=== PATIENT | female | born 1950 | race Caucasian/White ===

== ENCOUNTER 2017-02-05 14:42 | Day surgery (SDC) | payer OTHER ==
[~2017-02-05] VITALS: Ht 167.6 cm; Wt 66.9 kg
[~2017-02-05 14:42] MED LIST: PROPOFOL 200 MG/20 ML AMP IV ONE
[2017-02-05] MEDS ORDERED: POVIDONE IODINE 5% (ANTISEPSIS KIT) 4 APPLICATIONS EACH NARE PRN (16:00)
[2017-02-05] MEDS ORDERED: LACTATED RINGER'S 1000 ML IV PRN (16:00)
[2017-02-05] MEDS ORDERED: SODIUM CHLORID 0.9% 500 ML IV PRN (16:00)
[2017-02-05] MEDS ORDERED: METOPROLOL TARTRATE 25 MG TAB PO PRN (16:00)
[2017-02-05] MEDS ORDERED: CHLORHEXIDINE GLUCONATE 2 % 1 PACK (2 CLOTHS) TOPICAL PRN (16:00)
[2017-02-05] MEDS ORDERED: INSULIN HUMAN REGULAR 1,000 UNITS/10 ML VIAL SQ PRN (16:00)
[2017-02-05] MEDS ORDERED: AMLO5TAB2 PO (16:26)
[2017-02-05] MEDS ORDERED: APIX5TAB PO (16:26)
[2017-02-05] MEDS ORDERED: NEXI40CA PO (16:26)
[2017-02-05] MEDS ORDERED: LEVO50TA4 PO (16:26)
[2017-02-05] MEDS ORDERED: FLEC100T PO (16:26)
--- NOTE | 2017-02-05 20:04 | MA ---
cc: LISSA QUNIONEZ M.D. DATE 02/05/2017 Cardioversion. INDICATION Mrs. Gonzalez is a 66-year-old female with atrial fibrillation on medication was having episode of atrial tachyarrhythmia. Heart rate difficult to control. Admitted for cardioversion. The risks, the nature and the benefit of the procedure are clearly stated to her and her . The risks include pneumothorax, cardiac perforation, stroke, need for open heart surgery and even . The patient understands and agreed to proceed. PROCEDURE After written informed consent was obtained, the patient was brought to the DOC Unit where the patient was evaluate by anesthesiologist. Anterolateral pad was placed. Subsequently the patient received a 200 sync biphasic joule that converted her into sinus rhythm. Patient fully recuperated from anesthesia. No incident to report. CONCLUSION Successful cardioversion. COMMENT AND RECOMMENDATIONS The patient going to be discharged home. Medication will be initiated. Already on anticoagulation. I will see her in 3 weeks. MD SHAMA Norton/KK /5:00 PM /7:54 PM
--- NOTE | 2017-02-06 11:38 | EKG ---
Date Performed: 02/05/2017 Time Performed: 15:01:40 PTAGE: 66 years EKG: Atrial fibrillation with rapid ventricular response Left axis deviation IV conduction defec t Poor R wave progression - cannot rule out anteroseptal infarct Abnormal ECG NO PREVIOUS TRACING DOCTOR: Madan Houston Interpretating Date/Time 02/06/2017 11:37:24
== END 2017-02-05 17:35 | disposition home or self-care (01) ==
LOC: HDIC 14:42 → HDOC 14:42
PROVIDERS: ATTEND Internal Medicine Interventional Cardiology
DX: I48.91 Unspecified atrial fibrillation (principal); I11.9 Hypertensive heart disease without heart failure; E03.9 Hypothyroidism, unspecified; Z79.01 Long term (current) use of anticoagulants
CPT/HCPCS: 92960; 93005